=== PATIENT | male | born 1985 | race African-American/Black ===

== ENCOUNTER 2020-06-25 19:32 | Emergency (ER) | payer OTHER ==
[2020-06-25 19:43] VITALS: TEMP 99; BMI 22.4
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
[2020-06-25] MEDS ORDERED: SODIUM CHLORIDE 0.9% 500 ML INFUS.BAG IV ONE (20:28)
[2020-06-25 21:00] LABS: HEMATOCRIT 41.8 % (35.4-49); HEMOGLOBIN 13.8 GM/dL (11.7-16.9); MCH 28.6 pg (25.7-33.7); MCHC 33.1 g/dl (32.0-35.9); MEAN CELL VOLUME 86.5 fl (80-96); MEAN PLT VOLUME 11.3 fl (7.5-11.1); PLATELET COUNT 131 K/MM3 (134-434); RBC 4.83 M/mm3 (4.00-5.60); RDW 14.5 % (11.9-15.9); WHITE BLOOD COUNT 8.1 K/mm3 (4.0-10.0)
--- NOTE | 2020-06-25 21:05 | PDOC ---
Attending Attestation - Resident Resident Name: Leonel Hawk - ED Attending Attestation I have performed the following: I have examined & evaluated the patient, The case was reviewed & discussed with the resident, I agree w/resident's findings & plan, Exceptions are as noted - HPI HPI: 06/26/20 06:29 See resident HPI - Physicial Exam PE: 06/26/20 06:29 Agree with documented exam - Medical Decision Making 06/26/20 06:29 AMS, intox? head trauma? diabetic emergency? tox/metabolic derangement f/u labs, ekg, ct head dispo per clinical course Labs unremarkable, ct head negative, ekg non-ischemic on re-eval, AOx3, ambulating with strong steady gait, normal base, speaking in clear, full sentences dc Discharge - Discharge Information Problems reviewed: Yes Clinical Impression/Diagnosis: Altered mental state Qualifiers: Altered mental status type: unspecified Qualified Code(s): R41.82 - Altered mental status, unspecified Condition: Stable Disposition: HOME - Follow up/Referral Referrals: [facility] [place] [facility] [place] [Provider Group] Devi Horowitz MD [Staff Physician] - [place] Nunez MD [Staff Physician] - Tami Menchaca MD [Staff Physician] - - Patient Discharge Instructions Patient Printed Discharge Instructions: DI for Altered Mental Status Additional Instructions: You are here for altered mental status. We did a various panel of lab work and imaging. Everything came back negative. Home discharge: Please come back to the ED if you have altered mental status. If you hear or see anything abnormal, if you feel like your sugar is too low. If you have severe Nausea, vomiting, abdominal pain. Please come back to the ED. Please follow up with your PCP for further problem. Encourage to make appointment with your PCP in the next 48 hours. - Post Discharge Activity Work/Back to School Note: Back to Work
--- NOTE | 2020-06-25 21:35 | PDOC ---
Attending Attestation - Resident Resident Name: Leonel Hawk - ED Attending Attestation I have performed the following: I have examined & evaluated the patient, The case was reviewed & discussed with the resident, I agree w/resident's findings & plan, Exceptions are as noted
[2020-06-25 21:53] LABS: ALBUMIN 4.4 g/dl (3.4-5.0); BILIRUBIN,TOTAL 0.6 mg/dL (0.2-1); BLOOD UREA NITROGEN 13.2 mg/dL (7-18); CALCIUM 9.6 mg/dL (8.5-10.1); CREATININE 1.1 mg/dL (0.55-1.3); TOT PROT 7.2 g/dl (6.4-8.2)
[2020-06-26 01:38] LABS: URINE APPEARANCE CLEAR; URINE BILIRUBIN NEGATIVE (NEGATIVE); URINE COLOR YELLOW; URINE GLUCOSE (UA) NEGATIVE (NEGATIVE); URINE KETONE TRACE (NEGATIVE); URINE LEUK ESTERASE NEGATIVE (NEGATIVE); URINE NITRITE NEGATIVE (NEGATIVE); URINE PROTEIN NEGATIVE (NEGATIVE)
[2020-06-26 03:38] LABS: COCAINE, UR NEGATIVE ng/ml (CUTOFF=300); METHADONE, UR NEGATIVE ng/ml (CUTOFF=300); OPIATES, URI NEGATIVE ng/ml (CUTOFF=300); PHENCYCLIDINE,URINE NEGATIVE ng/ml (CUTOFF=25); URINE AMPHETAMINES NEGATIVE ng/ml (CUTOFF=500); URINE BARBITURATES NEGATIVE ng/ml (CUTOFF=200); URINE BENZODIAZEPINES NEGATIVE ng/ml (CUTOFF=200)
[2020-06-26 04:50] VITALS: BP 107/60; PULSE 62
--- NOTE | 2020-06-26 12:55 | EKG ---
Test Reason : Blood Pressure : / mmHG Vent. Rate : 077 BPM Atrial Rate : 077 BPM P-R Int : 162 ms QRS Dur : 090 ms QT Int : 384 ms P-R-T Axes : 072 068 044 degrees QTc Int : 434 ms NORMAL SINUS RHYTHM POSSIBLE LEFT ATRIAL ENLARGEMENT ABNORMAL ECG NO PREVIOUS ECGS AVAILABLE Confirmed by LINDA TRINIDAD MD ([id number]) on 06/26/2020 12:55:05 PM Referred By: Confirmed By:LINDA TRINIDAD MD
== END 2020-06-26 04:45 | disposition home or self-care (01) ==
LOC: JER 19:32
DX: R41.82 Altered mental status, unspecified (principal)
CPT/HCPCS: 36415; 70450-TC; 80053; 80307; 81003; 82010; 82962; 83690; 85027; 87086; 93005; 93010; 99285-25

== ENCOUNTER 2020-07-28 08:36 | Emergency (ER) | payer OTHER ==
[2020-07-28 08:43] VITALS: TEMP 98.6; BMI 22.1
--- NOTE | 2020-07-28 09:00 | PDOC ---
History of Present Illness - General Chief Complaint: Pain, Acute Stated Complaint: ABD PAIN Time Seen by Provider: 07/28/20 08:47 History Source: Patient Exam Limitations: No Limitations - History of Present Illness Initial Comments: 07/28/20 08:56 34-year-old male past medical history of diabetes II (on insulin) unknown abdominal surgery presenting to the ED complaining of lower abdominal suprapubic pain x3 days. Patient states that he has decreased appetite but is still able to tolerate p.o. food and fluids, denies nausea vomiting diarrhea constipation. Patient is also complaining of gross hematuria x1 yesterday. Patient states that he believes his previous abdominal surgery was a hernia repair but is uncertain he states that yesterday he had a bulge in his groin area which is now resolved but he is complaining of pain. Pt otherwise denies: fevers, chills, syncope, lightheadedness, dizziness, headaches, neck pain, chest pain, shortness of breath, palpitations, back pain, nausea, vomiting, diarrhea, constipation. Past History - Medical History Allergies/Adverse Reactions: Allergies Allergy/AdvReac Type Severity Reaction Status Date / Time Penicillins Allergy Unknown Verified 07/28/20 08:40 Home Medications: Ambulatory Orders Insulin Lispro [Humalog] 0 unit SQ TID PRN 07/28/20 COPD: No Diabetes: Yes - Immunization History Immunization Up to Date: No - Psycho-Social/Smoking History Smoking History: Current every day smoker Have you smoked in the past 12 months: No Information on smoking cessation initiated: No - Substance Abuse Hx (Audit-C & DAST Scrn) How often the patient has a drink containing alcohol: Never Score: In Men: 4 or > Positive; In Women: 3 or > Positive: 0 Screen Result (Pos requires Nsg. Audit-10AR): Negative In the last yr the pt used illegal drug/Rx for NonMed reason: No Score: Yes response is considered Positive: 0 Screen Result (Positive result requires Nsg. DAST-10): Negative *Physical Exam - Vital Signs Last Vital Signs Temp Pulse Resp BP Pulse Ox 98.6 F 102 H 18 131/54 L 100 07/28/20 08:40 07/28/20 08:40 07/28/20 08:40 07/28/20 08:40 07/28/20 08:40 - Physical Exam 07/28/20 08:58 Gen: AAOx 3, no acute distress, comfortable, no signs of respiratory distress HENT: atraumatic, normocephalic with no laceration or contusion. Nasal mucosa without erythema. Oropharynx without erythema or exudates. Mucous membranes moist. EYES: PERRL, EOM intact, conjunctiva pink NECK: supple; trachea midline; no JVD, no lymphadenopathy, or thyromegaly CV: RRR no murmurs, gallops, or rubs. CHEST: CTA b/l no wheezing, rales or rhonchi ABD: +BS/ND. TTP over LLQ and suprapubic area with voluntary guarding; rest of abdomen soft, no rebound, no guarding GENITAL: Non-tender, non-edematous, circumcised penis with no discharge/bleeding from meatus, non-tender, non-edematous b/l descended testes with b/l vertical lies; no rashes/lesions/masses/crepitus/LAD; no inguinal hernia expressed EXTREMITY: no cyanosis or erythema. 2+ dorsalis pedis, posterior tibial, and radial pulse. No pedal edema; no calf swelling or tenderness SKIN: no rash, warm and dry, no diaphoresis HEME: no purpura or ecchymosis NEURO: normal speech, CN II-XII intact, sensation intact, normal gait, no cerebellar deficits MS: 5/5 strength in all extremities, FROM intact in all extremities. ED Treatment Course - LABORATORY CBC & Chemistry Diagram: 07/28/20 10:00 07/28/20 10:00 Medical Decision Making - Medical Decision Making 07/28/20 08:59 34-year-old male with hematuria abdominal pain and suprapubic pain Vital signs stable aside from mild tachycardia Will obtain labs UA administer Toradol for symptomatic relief and obtain CT abdomen pelvis to further evaluate Will reassess based on results Labs and UA WNL Ct abdomen and pelvis shows no acute pathology Pt reports improvement in pain with meds. Pt to follow up with Urology and PCP, will refer Pt appears well and is safe and stable for discharge with strict return precautions including signs and symptoms requring immediate return to the ED Supportive care instructions explained and given to pt. Reasons to return emergently to ER explained and given. Importance of follow up with PMD and other specialists as indicated stressed to pt. Pt verbalized understanding of instructions. Pt to follow up with PMD in 2 days. Discharge - Discharge Information Problems reviewed: Yes Clinical Impression/Diagnosis: Abdominal pain Qualifiers: Abdominal location: lower abdomen, unspecified Qualified Code(s): R10.30 - Lower abdominal pain, unspecified Condition: Stable Disposition: HOME - Follow up/Referral Referrals: Jose Arthur MD [Non Staff, Medical] - Marlene Lua MD [Staff Physician] - - Patient Discharge Instructions Patient Printed Discharge Instructions: DI for Abdominal Pain-Adult - Post Discharge Activity
[2020-07-28] MEDS ORDERED: KETOROLAC TROMETHAMINE 30 MG/1 ML VIAL IVPUSH ONE (09:01)
[2020-07-28] MEDS ORDERED: KETOROLAC TROMETHAMINE 30 MG/1 ML VIAL ONE (09:11)
[2020-07-28 10:34] LABS: BASO % 0.4 % (0-2.0); EOS % 0.5 % (0-4.5); HEMATOCRIT 43.8 % (35.4-49); HEMOGLOBIN 14.6 GM/dL (11.7-16.9); LYMPH % 27.5 % (8-40); MCH 28.6 pg (25.7-33.7); MCHC 33.4 g/dl (32.0-35.9); MEAN CELL VOLUME 85.8 fl (80-96); MEAN PLT VOLUME 11.1 fl (7.5-11.1); MONO % 6.5 % (3.8-10.2); NEUT % 65.1 % (42.8-82.8); PLATELET COUNT 159 K/MM3 (134-434); RBC 5.11 M/mm3 (4.00-5.60); RDW 14.3 % (11.9-15.9); WHITE BLOOD COUNT 7.4 K/mm3 (4.0-10.0)
[2020-07-28 10:38] LABS: EPI CELLS >36 /uL (0-25.1); HYALINE CASTS 73 /uL (0-3.1); PH,URINE 5.5 (5.0-8.0); URINE APPEARANCE CLOUDY; URINE BACTERIA 55 /uL (0-1359); URINE BILIRUBIN NEGATIVE (NEGATIVE); URINE COLOR DK YELLOW; URINE GLUCOSE (UA) NEGATIVE (NEGATIVE); URINE KETONE TRACE (NEGATIVE); URINE LEUK ESTERASE NEGATIVE (NEGATIVE); URINE NITRITE NEGATIVE (NEGATIVE); URINE PROTEIN 1+ (NEGATIVE); URINE RBC 9 /uL (0-23.9)
[2020-07-28 10:57] LABS: ALBUMIN 4.2 g/dl (3.4-5.0); BILIRUBIN,TOTAL 0.5 mg/dL (0.2-1); BLOOD UREA NITROGEN 17.2 mg/dL (7-18); CALCIUM 9.3 mg/dL (8.5-10.1); CREATININE 1.2 mg/dL (0.55-1.3); POTASSIUM 4.1 mmol/L (3.5-5.1); TOT PROT 7.2 g/dl (6.4-8.2)
[2020-07-28 13:55] VITALS: BP 122/89; PULSE 89
== END 2020-07-28 13:55 | disposition home or self-care (01) ==
LOC: JER 08:36
PROC: 3E0233Z Introduction of Anti-inflammatory into Muscle, Percutaneous Approach (ICD-10-PCS; principal; 2020-07-28)
DX: R10.30 Lower abdominal pain, unspecified (principal)
CPT/HCPCS: 36415; 74177-TC; 80053; 81003; 83690; 85025; 87086; 99285-25; Q9967